=== PATIENT | male | born 1965 | race Hispanic/Latino ===

== ENCOUNTER 2018-09-18 14:03 | Outpatient (CLI) | payer BC ==
--- NOTE | 2018-09-18 16:09 | Magnetic Resonance Report ---
PROCEDURE: MR UE JOINT RT WO CON HISTORY: M25.511 PAIN IN RIGHT SHOULDER FINDINGS: MRI of the right shoulder was performed using axial T2*gradient echo, coronal fat saturated T2, coronal T1, coronal fat saturated proton density, sagittal fat saturated proton density, coronal fat-saturated T2 and sagittal fat-saturated T2-weighted images. These images demonstrate that the supraspinatus, infraspinatus, and teres minor muscles and tendons a ppear intact. There is a tear of the most-superior insertional fibers of the subscapularis muscle, bu t most of the subscapularis tendon insertion is intact. The glenoid labrum appears intact. The biceps tendon appears intact. There is somewhat more fluid in the biceps tendon sheath than is ge nerally seen, which could represent tenosynovitis. There is a curved type II acromion. There is no subacromial spur. IMPRESSION: Tear of the superior insertion fibers of the subscapularis tendon. Most of the subscapularis tendon i nsertion is intact There is more fluid in the biceps tendon sheath is generally seen. This could represent tenosynovitis This document is electronically signed by Waqar Luz MD., September 18 2018 04:07:46 PM ET
== END 2018-09-18 14:04 | disposition home or self-care (01) ==
LOC: MRI 14:03
PROVIDERS: ATTEND Orthopaedic Surgery
DX: S46.811A Strain of other muscles, fascia and tendons at shoulder and upper arm level, right arm, initial encounter (principal); X58.XXXA Exposure to other specified factors, initial encounter; Y93.89 Activity, other specified; Y92.89 Other specified places as the place of occurrence of the external cause; Y99.8 Other external cause status

== ENCOUNTER 2019-01-30 15:46 | Outpatient (CLI) | payer BC ==
[2019-01-30 16:44] LABS: Alanine Aminotransferase 26 units/L (7-56); Albumin 4.2 g/dL (3.9-5); BUN/Creatinine Ratio 18; Blood Urea Nitrogen 14 mg/dL (9-20); Hemolysis Index 2; LDL Cholesterol,Direct 116 mg/dL (50-130)
[2019-01-30 17:54] LABS: Chol/HDL Ratio 3.18 %; HDL Cholesterol 53 mg/dL (40-59)
[2019-01-30 22:31] LABS: Microalbumin/Creatinine Ratio 12.3 ug/mg
== END 2019-01-30 15:47 | disposition home or self-care (01) ==
LOC: LAB 15:46
PROVIDERS: ATTEND Internal Medicine Endocrinology, Diabetes & Metabolism
DX: E10.65 Type 1 diabetes mellitus with hyperglycemia (principal)
CPT/HCPCS: 36415; 80053; 80061; 82043; 83036; 84436; 84443